=== PATIENT | male | born 1980 | race American Indian/Alaskan Native ===

== ENCOUNTER 2019-04-05 05:27 | Emergency (ER) | payer SELFPAY ==
--- NOTE | 2019-04-05 07:48 | Emergency Department Report ---
Chief Complaint: Dizziness Stated Complaint: DIZZY Time Seen by Provider: 04/05/19 07:19 - HPI History of Present Illness: This is a 38-year-old male with a history of hypertension that is controlled with medication presents to the ED complaining of short episode of lightheaded and dizziness this morning while driving to work. Patient states that symptoms lasted about a minute and resolved. Patient states he got scared and came to the ER to be evaluated because he did not think he could go to work. Patient denies any headache, blurry vision, injuries or trauma or fall, chest pain, shortness of breath, abdominal pain, nausea vomiting or diarrhea. Patient state s that he has not been eating at all this morning prior to heading to work. Patient states he has a primary care physician which she follows with regularly and manage his hypertension. - ROS Review of Systems: As noted in HPI. All systems reviewed and negative - Exam Vital Signs: Vital Signs 04/05/19 05:33 Temperature 98.0 F Pulse Rate 72 Respiratory 18 Rate Blood Pressure 152/104 O2 Sat by Pulse 99 Oximetry Physical Exam: GENERAL: Alert and oriented x3, no apparent distress, Normal Gait, atraumatic. HEAD: Head is normocephalic and a-traumatic. EYES: Extra ocular muscles are intact. Pupils are equal, round, and reactive to light and accommodation. EARS: symetrical, atraumatic, non tender, ear canal clear and moderate cerumen, tympanic membrance non inflamed. gross auditory nml bilaterally. NEUROLOGIC: The patient is cooperative with no focal neurologic deficits. Cranial nerves II through XII are grossly intact. Normal speech. Normal sensation in bilateral upper and lower extremities, No loss of sensation, SKIN: Warm and dry, No lesions, No ulceration or induration present. MSE screening note: Focused history and physical exam performed. Due to findings the following was ordered: ED Medical Decision Making - Medical Decision Making 38-year-old healthy male presents with 1 episode of dizziness is resolved. I discussed with the patient is to follow-up with his primary care physician in 2 to 3 days. Patient does agrees and states that he will make an appointment today. Patient is in no acute or respiratory distress. Patient had no neurological deficit. Patient understands instructions to follow-up. ED Disposition for MSE Clinical Impression: Dizziness Disposition: Z-07 MED SCREENING EXAM-LEFT Is pt being admited?: No Does the pt Need Aspirin: No Condition: Stable Instructions: Vertigo (ED), Lightheadedness (ED) Additional Instructions: Make sure to follow up with the primary care physician as discussed. Take all your medications as you've been prescribed. If you have any worsening symptoms or develop new symptoms please return to ED immediately. Referrals: ELAINA CORBIN MD [Primary Care Provider] - 3-5 Days Forms: Work/School Release Form(ED) Time of Disposition: 07:51
[2019-04-05 08:02] VITALS: BP 150/100
== END 2019-04-05 08:01 | disposition left against medical advice (07) ==
LOC: ED 05:27
DX: R42 Dizziness and giddiness (principal)
CPT/HCPCS: 99282